=== PATIENT | male | born 2000 | race Two or more races ===

== ENCOUNTER 2020-02-22 17:24 | Emergency (ER) | payer SELFPAY ==
[~2020-02-22] VITALS: Ht 175.3 cm; Wt 81.9 kg
[2020-02-22] MEDS ORDERED: ONDANSETRON ODT 8 MG PO ONE (20:00)
[2020-02-22] MEDS ORDERED: IBUPROFEN 600 MG TABLET PO ONE (20:00)
[2020-02-22] MEDS ORDERED: ONDANSETRON ODT 4 MG ONE (20:02)
[2020-02-22] MEDS ORDERED: IBUPROFEN 200 MG TABLET ONE (20:02)
[2020-02-22 20:16] VITALS: BP 121/82
== END 2020-02-22 20:18 | disposition home or self-care (01) ==
LOC: ED 18:25
DX: S62.361A Nondisplaced fracture of neck of second metacarpal bone, left hand, initial encounter for closed fracture (principal); S00.33XA Contusion of nose, initial encounter; S00.83XA Contusion of other part of head, initial encounter; S00.11XA Contusion of right eyelid and periocular area, initial encounter; S60.211A Contusion of right wrist, initial encounter; S60.222A Contusion of left hand, initial encounter; R55 Syncope and collapse; Y08.02XA Assault by strike by baseball bat, initial encounter; Y93.89 Activity, other specified; Y92.830 Public park as the place of occurrence of the external cause; Y99.8 Other external cause status
CPT/HCPCS: 29125; 70486; 73110; 73130; 99284; Q0162